=== PATIENT | female | born 1995 | race Two or more races ===

== ENCOUNTER 2019-02-05 17:04 | Emergency (ER) | payer MEDICAID, OTHER ==
[~2019-02-05] VITALS: Ht 182.9 cm; Wt 68.2 kg
[~2019-02-05 17:04] MED LIST: MEDR150V IM; NAPR-1154 PO; ONDA4TAB12 PO
--- NOTE | 2019-02-05 20:32 | NUR ---
CALLED CT SCAN TO SEE IF THEY COULD SPEED UP THE CT SCAN READING
[2019-02-05] MEDS ORDERED: HYDROcodone/acetaminophen 5mg/325mg tablet PO ONE (20:40)
[2019-02-05 21:16] VITALS: BP 122/64
== END 2019-02-05 21:21 | disposition home or self-care (01) ==
LOC: ER 17:04
DX: S00.83XA Contusion of other part of head, initial encounter (principal); J45.909 Unspecified asthma, uncomplicated; F31.9 Bipolar disorder, unspecified; F12.90 Cannabis use, unspecified, uncomplicated; Z88.0 Allergy status to penicillin; Z79.899 Other long term (current) drug therapy; Y04.0XXA Assault by unarmed brawl or fight, initial encounter; Y93.89 Activity, other specified; Y92.89 Other specified places as the place of occurrence of the external cause; Y99.8 Other external cause status
CPT/HCPCS: 70486; 99284

== ENCOUNTER 2019-06-18 22:57 | Emergency (ER) | payer MEDICAID, OTHER ==
[~2019-06-18] VITALS: Ht 182.9 cm; Wt 68.0 kg
[2019-06-18 23:00] VITALS: BP 112/74
--- NOTE | 2019-06-18 23:03 | NUR ---
immediately following triage patient was moved to triage 2 to speak with officer - she has been advised to let an RN know if she needs to use the restroom.
[2019-06-19] MEDS ORDERED: CefTRIAXone 250MG IM Kit w/LIDOcaine IM ONE (01:15)
[2019-06-19] MEDS ORDERED: metroNIDAZOLE 500mg tablet PO ONE (01:15)
[2019-06-19] MEDS ORDERED: azithromycin 250mg tablet PO ONE (01:15)
--- NOTE | 2019-06-19 02:58 | NUR ---
referral call to [facility] for follow up
== END 2019-06-19 03:00 | disposition home or self-care (01) ==
LOC: ER 22:57 → EEVIPCON 22:57 → ER 06-19 03:00
DX: T76.21XA Adult sexual abuse, suspected, initial encounter (principal); J45.909 Unspecified asthma, uncomplicated; F31.9 Bipolar disorder, unspecified; F17.200 Nicotine dependence, unspecified, uncomplicated; F12.90 Cannabis use, unspecified, uncomplicated; Z88.0 Allergy status to penicillin; Z79.899 Other long term (current) drug therapy
CPT/HCPCS: 99284; J3490